=== PATIENT | male | born 1995 | race Hispanic/Latino ===

== ENCOUNTER 2020-10-24 20:57 | Emergency (ER) | payer SELFPAY ==
[2020-10-24] MEDS ORDERED: Boostrix 0.5 ML (Tdap) VIAL ONE (21:05)
[2020-10-24] MEDS ORDERED: Lidocaine 1% w/Epinephrine 1:100K 20 ML VIAL ONE (21:05)
[2020-10-24] MEDS ORDERED: CEFAZOLIN 1 GM VIAL ONE (21:33)
[2020-10-24] MEDS ORDERED: Bacitracin 1 PK ONE (21:33)
[2020-10-24] MEDS ORDERED: Sterile Water 10 ML ONE (21:34)
== END 2020-10-24 22:16 | disposition home or self-care (01) ==
LOC: ERS 20:57
DX: S61.511A Laceration without foreign body of right wrist, initial encounter (principal); W26.0XXA Contact with knife, initial encounter; Y99.0 Civilian activity done for income or pay; F17.210 Nicotine dependence, cigarettes, uncomplicated
CPT/HCPCS: 12002; 90471; 90715; 96372; J0690